=== PATIENT | female | born 1970 | race African-American/Black ===

== ENCOUNTER 2018-07-02 12:15 | Emergency (ER) | payer SELFPAY ==
--- NOTE | 2018-07-02 12:49 | EDM.PDOC ---
ED HPI GENERAL MEDICAL PROBLEM - General Chief Complaint: Lower Extremity Injury/Pain Stated Complaint: PAIN IN LT LEG Time Seen by Provider: 07/02/18 12:49 Source of Information: Reports: Patient History Limitations: Reports: No Limitations - History of Present Illness INITIAL COMMENTS - FREE TEXT/NARRATIVE: HISTORY AND PHYSICAL: []48-year-old female presenting with left leg pain History of Present Illness: []Started in her calf now is resolved she is having pain in the back of her knee and back of her thigh Review of Systems: As per history of present illness and below otherwise all systems reviewed and negative. Past medical history: As per history of present illness and as reviewed below otherwise noncontributory. Surgical history: As per history of present illness and as reviewed below otherwise noncontributory. Social history: No reported history of drug or alcohol abuse. Family history: As per history of present illness and as reviewed below otherwise noncontributory. Physical exam: Alert female answering questions appropriately in full sentences without any shortness of breath. She is nontoxic in appearance. HEENT: Atraumatic, normocehpalic, pupils reactive, negative for conjunctival pallor or scleral icterus, mucous membranes moist, throat clear, neck supple, nontender, trachea midline. Lungs: Clear to auscultation, breath sounds equal bilaterally, chest non tender. Heart: S1S2, regular, negative for clicks, rubs, or JVD. Abdomen: Soft, nondistended, nontender. Negative for masses or hepatossplenmegaly. Negative for costovertebral tenderness. Pelvis: Stable nontender. Exquisite tenderness with palpation to the sciatic on the left. With palpation she did buckle her knee slightly. Genitourinary: Deferred. Rectal: Deferred Extremities: Atraumatic, negative for cords or calf pain. Pressure calf did not elicit pain. Palpation posterior knee difficult due to habitus. Neurovascular unremarkable. Neuro: Awake, alert, oriented. Cranial nerves II through XII unremarkable. Cerebellum unremarkable. Motor and sensory unremarkable throughout. Exam nonfocal. Discussed the case with the patient stating that her symptoms and ultrasounds indicate a left sciatica Diagnostics: []Left knee x-ray to rule out Felton's cyst Therapeutics: [] Impression: []Left sciatica Plan: []Discharged home Follow up with physical therapy See your primary care provider to reevaluate Diclofenac for pain Medrol dose pack Return to the emergency department as directed Definitive disposition and diagnosis as appropriate pending reevaluation and review of above. 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 ED EXAM, GENERAL - Physical Exam Exam: See Below (see dictation) Course - Vital Signs Last Recorded V/S: Last Vital Signs Temp 36.7 C 07/02/18 12:28 Pulse 85 07/02/18 12:28 Resp 18 07/02/18 12:28 BP 132/86 07/02/18 12:28 Pulse Ox 99 07/02/18 12:28 - Orders/Labs/Meds Orders: Active Orders 24 hr Category Date Time Status Extremity Non Vascular Lt [US] Stat Exams 07/02/18 13:31 Taken Knee 3V Lt [CR] Stat Exams 07/02/18 12:53 Taken Meds: Medications Discontinued Medications Generic Name Dose Route Start Last Admin Trade Name Freq PRN Reason Stop Dose Admin Ketorolac Tromethamine 60 mg 07/02/18 13:34 Toradol IM 07/02/18 13:35 ONETIME ONE Departure - Departure Time of Disposition: 14:47 Disposition: Home, Self-Care 01 Condition: Good Clinical Impression: Left sided sciatica - Discharge Information *PRESCRIPTION DRUG MONITORING PROGRAM REVIEWED*: Not Applicable *COPY OF PRESCRIPTION DRUG MONITORING REPORT IN PATIENT JAVIER: Not Applicable Prescriptions: Diclofenac Sodium [Voltaren] 75 mg PO BIDMEALS #20 tab.cr methylPREDNISolone [Medrol] 4 mg PO ASDIRECTED #1 dosepk Instructions: Sciatica [facility], Sciatica, Zapt-[facility]-Cuer Referrals: PCP,None [Primary Care Provider] - Forms: ED Department Discharge Additional Instructions: The following information is given to patients seen in the emergency department who are being discharged to home. This information is to outline your options for follow-up care. We provide all patients seen in our emergency department with a follow-up referral. The need for follow-up, as well as the timing and circumstances, are variable depending upon the specifics of your emergency department visit. If you don't have a primary care physician on staff, we will provide you with a referral. We always advise you to contact your personal physician following an emergency department visit to inform them of the circumstance of the visit and for follow-up with them and/or the need for any referrals to a consulting specialist. The emergency department will also refer you to a specialist when appropriate. This referral assures that you have the opportunity for followup care with a specialist. All of these measure are taken in an effort to provide you with optimal care, which includes your followup. Under all circumstances we always encourage you to contact your private physician who remains a resource for coordinating your care. When calling for followup care, please make the office aware that this follow-up is from your recent emergency room visit. If for any reason you are refused follow-up, please contact the [facility] emergency department at and asked to speak to the emergency department charge nurse. Discharged home Follow up with physical therapy See your primary care provider to reevaluate Diclofenac for pain Medrol dose pack Return to the emergency department as directed - My Orders Last 24 Hours: My Active Orders 07/02/18 12:53 Knee 3V Lt [CR] Stat 07/02/18 13:31 Extremity Non Vascular Lt [US] Stat - Assessment/Plan Last 24 Hours: My Active Orders 07/02/18 12:53 Knee 3V Lt [CR] Stat 07/02/18 13:31 Extremity Non Vascular Lt [US] Stat
[2018-07-02] MEDS ORDERED: Ketorolac 60 MG/2 ML SDV IM ONE (13:34)
[2018-07-02] MEDS ORDERED: Ketorolac 60 MG/2 ML SDV ONE (14:58)
--- NOTE | 2018-07-03 13:48 | CR ---
EXAM DATE: 07/02/18 PATIENT'S AGE: 48 Patient: DANNY SHAW Facility: [place], [place] Site . Site : 1970 Study: XRay Knee Left [id number]/2/2018 1:19:43 PM Ordering Physician: Doctor Christian Final Report: CLINICAL INDICATION: Left knee pain. No trauma. Assess for Felton`s cyst. Findings : There is mild narrowing of the medial knee joint compartment with mild marginal spurring. There is also mild patellofemoral change. There is no fracture, dislocation or joint effusion. IMPRESSION: Mild medial and patellofemoral compartment osteoarthritis. No apparent Felton`s cyst but this cannot be excluded based on plain radiography. Consider ultrasound. Dictated by Rodrigo Escudero MD @ Jul 02 2018 1:21PM (Electronic Signature) Report Signed by Proxy. JOSE
--- NOTE | 2018-07-03 13:57 | US ---
EXAM DATE: 07/02/18 PATIENT'S AGE: 48 Patient: DANNY SHAW Facility: [place], [place] Site . Site : 1970 Study: US Extremity Left knee MW [id number]/2/2018 2:22:29 PM Ordering Physician: Doctor Christian Final Report: INDICATION: Knee pain. FINDINGS: An ultrasound of the left popliteal fossa shows no abnormal fluid collections. No evidence of a Felton`s cyst. No DVT identified in the left popliteal vein. Dictated by Sudheer Mcmullen MD @ 07/02/2018 2:31:15 PM Dictated by: Sudheer Mcmullen MD @ 07/02/2018 14:31:27 (Electronic Signature) Report Signed by Proxy. JOSE
== END 2018-07-02 15:25 | disposition home or self-care (01) ==
LOC: MW.ED 12:15
DX: M54.32 Sciatica, left side (principal); Z88.2 Allergy status to sulfonamides
CPT/HCPCS: 73562; 76881; 96372; 99283; J1885

== ENCOUNTER 2019-01-22 10:19 | Emergency (ER) | payer MEDICAID, OTHER ==
[2019-01-22] MEDS ORDERED: Ketorolac 30 MG/ML SDV IM ONE (10:36)
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
--- NOTE | 2019-01-22 12:20 | CR ---
EXAMINATION: Lumbar spine HISTORY: Pain COMPARISON: None TECHNIQUE: AP and lateral views obtained of the lumbar spine. FINDINGS: The lumbar spinal alignment is normal. The vertebral body heights and disc spaces appear well-maintained. Mild marginal osteophyte formation. SI joints are symmetric. Cholecystectomy clips are noted. IMPRESSION: 1. Mild degenerative changes without acute findings.
== END 2019-01-22 12:39 | disposition home or self-care (01) ==
LOC: MW.ED 10:19
DX: M54.5 Low back pain (principal); Z88.2 Allergy status to sulfonamides
CPT/HCPCS: 72100; 81003; 96372; 99283; J1885; J2360

== ENCOUNTER 2019-01-24 12:46 | Emergency (ER) | payer MEDICAID ==
[2019-01-24] MEDS ORDERED: Ondansetron 4 MG Tab.DIS PO ONE (13:06)
[2019-01-24] MEDS ORDERED: Ketorolac 60 MG/2 ML SDV IM ONE (13:06)
--- NOTE | 2019-01-24 13:16 | EDM.PDOC ---
ED [facility] GENERAL MEDICAL PROBLEM - General Chief Complaint: Neck Problem Stated Complaint: NECK PAIN Time Seen by Provider: 01/24/19 13:02 Source of Information: Reports: Patient History Limitations: Reports: No Limitations - History of Present Illness INITIAL COMMENTS - FREE TEXT/NARRATIVE: HISTORY AND PHYSICAL: History of present illness: Patient is a 48-year-old female who presents to the ED today with concerns of neck pain. Patient states the pain started this morning and she rates her pain a 10 out of 10. Patient states the neck pain is causing her nausea today but she has not vomited. Patient describes the pain as "spasm". She denies any recent injury to the area. Patient was seen in the ED on 01/22/2019 for low back pain which she did receive imaging at that time which showed no acute osseous abnormality of the lumbar spine. Patient was sent home with Flexeril and diclofenac and states that this "doesn't touch her pain ". Therefor she did not fill these prescriptions. Patient denies any fever, chills, change in vision, syncope or near syncope. Denies any chest pain, shortness of breath or cough. Denies any abdominal pain, vomiting, diarrhea, constipation or dysuria. Has not noted any blood in urine or stool. Patient has been eating and drinking appropriately. Review of systems: As per history of present illness and below otherwise all systems reviewed and negative. Past medical history: As per history of present illness and as reviewed below otherwise noncontributory. Surgical history: As per history of present illness and as reviewed below otherwise noncontributory. Social history: See social history for further information Family history: As per history of present illness and as reviewed below otherwise noncontributory. Physical exam: General: Patient is alert, oriented, and in no acute distress. She is sitting comfortably on exam table. HEENT: Atraumatic, normocephalic, pupils equal and reactive bilaterally, negative for conjunctival pallor or scleral icterus, mucous membranes moist, TMs normal bilaterally, throat clear, neck supple, nontender, trachea midline. No drooling or trismus noted. No meningeal signs. No hot potato voice noted. Lungs: Clear to auscultation, breath sounds equal bilaterally, chest nontender. Heart: S1S2, regular rate and rhythm without overt murmur Abdomen: Soft, nondistended, nontender. Negative for masses or hepatosplenomegaly. Negative for costovertebral tenderness. Pelvis: Stable nontender. Genitourinary: Deferred. Rectal: Deferred. Skin: Intact, warm, dry. No lesions or rashes noted. Extremities/Musculoskeletal: Patient has mild pain to palpation of the trapezius muscle. Negative pain to palpation of the spinous processes of the cervical spine. Patient has full range of motion of the cervical spine. Otherwise, atraumatic, negative for cords or calf pain. Neurovascular unremarkable. Neuro: Awake, alert, oriented. Cranial nerves II through XII unremarkable. Cerebellum unremarkable. Motor and sensory unremarkable throughout. Exam nonfocal. Notes: We'll do imaging today. Cervical x-ray shows no acute osseous abnormalities. These findings were discussed and shared with patient. Supportive care measures were reviewed and discussed. Voices understanding and is agreeable to plan of care. Denies any further questions or concerns at this time. Diagnostics: Cervical spine XR Therapeutics: Zofran, Toradol Prescription: Zofran Impression: Muscle spasm, unspecified Plan: 1. Take ibuprofen and Tylenol as directed for pain and discomfort. You can apply heat or ice to the area 15 minutes on 20 minutes off to alleviate pain and discomfort. 2. Follow-up with your primary care provider as discussed. 3. Return to the ED as needed as discussed. Definitive disposition and diagnosis as appropriate pending reevaluation and review of above. Neck Pain Score (Numeric/FACES): 10 - Related Data Allergies Allergy/AdvReac Type Severity Reaction Status Date / Time Sulfa (Sulfonamide Allergy Hives Verified 01/24/19 13:03 Antibiotics) Home Meds: Home Meds . 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 ED EXAM, UPPER BACK/NECK PAIN - Physical Exam Exam: See Below (see dictation) Course - Vital Signs Last Recorded V/S: Last Vital Signs Temp 97.0 F 01/24/19 13:01 Pulse 72 01/24/19 14:03 Resp 18 01/24/19 14:03 BP 125/81 01/24/19 14:03 Pulse Ox 97 01/24/19 14:03 - Orders/Labs/Meds Meds: Medications Discontinued Medications Generic Name Dose Route Start Last Admin Trade Name Curly PRN Reason Stop Dose Admin Ketorolac Tromethamine 60 mg 01/24/19 13:06 01/24/19 13:39 Toradol IM 01/24/19 13:07 60 mg ONETIME ONE Administration Ondansetron HCl 4 mg 01/24/19 13:06 01/24/19 13:38 Zofran Odt PO 01/24/19 13:07 4 mg ONETIME ONE Administration Orphenadrine Citrate 60 mg 01/24/19 13:08 01/24/19 13:39 Norflex IM 01/24/19 13:09 60 mg NOW STA Administration Departure - Departure Time of Disposition: 13:52 Disposition: Home, Self-Care 01 Clinical Impression: Muscle spasm - Discharge Information Instructions: Muscle Cramps and Spasms, [id number] Referrals: PCP,Unknown [Primary Care Provider] - Forms: ED Department Discharge Additional Instructions: The following information is given to patients seen in the emergency department who are being discharged to home. This information is to outline your options for follow-up care. We provide all patients seen in our emergency department with a follow-up referral. The need for follow-up, as well as the timing and circumstances, are variable depending upon the specifics of your emergency department visit. If you don't have a primary care physician on staff, we will provide you with a referral. We always advise you to contact your personal physician following an emergency department visit to inform them of the circumstance of the visit and for follow-up with them and/or the need for any referrals to a consulting specialist. The emergency department will also refer you to a specialist when appropriate. This referral assures that you have the opportunity for follow-up care with a specialist. All of these measure are taken in an effort to provide you with optimal care, which includes your follow-up. Under all circumstances we always encourage you to contact your private physician who remains a resource for coordinating your care. When calling for follow-up care, please make the office aware that this follow-up is from your recent emergency room visit. If for any reason you are refused follow-up, please contact the [facility] Emergency Department at and asked to speak to the emergency department charge nurse. [facility] [address] [place] [id number] [facility] [address] [place] [id number] 1. Take ibuprofen and Tylenol as directed for pain and discomfort. You can apply heat or ice to the area 15 minutes on 20 minutes off to alleviate pain and discomfort. 2. Follow-up with your primary care provider as discussed. 3. Return to the ED as needed as discussed.
--- NOTE | 2019-01-24 13:51 | CR ---
EXAMINATION: Cervical spine HISTORY: Pain COMPARISON: 10/11/2018 TECHNIQUE: AP and lateral views obtained FINDINGS: The cervical spinal alignment is normal. Vertebral body heights appear maintained. There is no abnormal bone marrow signal. No fracture or acute osseous abnormality. Osteophyte noted at C5. Prevertebral soft tissues are normal. IMPRESSION: No acute osseous abnormality identified.
== END 2019-01-24 14:04 | disposition home or self-care (01) ==
LOC: MW.ED 12:46
DX: M62.838 Other muscle spasm (principal); Z88.2 Allergy status to sulfonamides
CPT/HCPCS: 72040; 96372; 99283; A9270; J1885; J2360

== ENCOUNTER 2019-02-27 08:19 | Emergency (ER) | payer MEDICAID ==
[2019-02-27] MEDS ORDERED: Ketorolac 30 MG/ML SDV IVPUSH ONE (08:41)
[2019-02-27] MEDS ORDERED: Ondansetron 4 MG/2 ML SDV IVPUSH ONE (08:41)
[2019-02-27] MEDS ORDERED: Sodium Chloride 0.9% 1,000 ML IV ONE (08:41)
[2019-02-27 10:00] LABS: CHLORIDE,CL 103 mmol/L (98-107); SODIUM,NA 139 mmol/L (136-145)
--- NOTE | 2019-02-27 10:11 | EDM.PDOC ---
ED [facility]PI GENERAL MEDICAL PROBLEM - General Chief Complaint: Abdominal Pain Stated Complaint: STOMACH PAIN Time Seen by Provider: 02/27/19 10:02 Source of Information: Reports: Patient - History of Present Illness INITIAL COMMENTS - FREE TEXT/NARRATIVE: HISTORY AND PHYSICAL: History of present illne[pt presents w abd pain 2 out of 10 nonradiating epigastric area, pain began after taking Wellbutrin and vomiting once on an empty stomach is patient has been dieting no distress alert no fever no current vomiting no chills sweats chest pain shortness breath headache dizziness palpitation no bowel or urine symptoms Review of systems: As per history of present illness and below otherwise all systems reviewed and negative. Past medical history: As per history of present illness and as reviewed below otherwise noncontributory. Surgical history: As per history of present illness and as reviewed below otherwise noncontributory. Social history: No reported history of drug or alcohol abuse. Family history: As per history of present illness and as reviewed below otherwise noncontributory. Physical exam: HEENT: Atraumatic, normocephalic, pupils reactive, negative for conjunctival pallor or scleral icterus, mucous membranes moist, throat clear, neck supple, nontender, trachea midline. Lungs: Clear to auscultation, breath sounds equal bilaterally, chest nontender. Heart: S1S2, regular, negative for clicks, rubs, or JVD. Abdomen: Soft, nondistended, nontender. Negative for masses or hepatosplenomegaly. Negative for costovertebral tenderness. Pelvis: Stable nontender. Genitourinary: Deferred. Rectal: Deferred. Extremities: Atraumatic, negative for cords or calf pain. Neurovascular unremarkable. Neuro: Awake, alert, oriented. Cranial nerves II through XII unremarkable. Cerebellum unremarkable. Motor and sensory unremarkable throughout. Exam nonfocal. Diagnostics: [ CBC CMP UA lip] Therapeutics: [normal saline toradol zofran mpression: [ abdominal pain ] Definitive disposition and diagnosis as appropriate pending reevaluation and review of above. 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: Musculoskeletal History: Reports: Neck Pain, Chronic Neurological History: Reports: None Psychiatric History: Reports: None Endocrine/Metabolic History: Reports: None Hematologic History: Reports: None Immunologic History: Reports: None Oncologic (Cancer) History: Reports: None Dermatologic History: Reports: None - Infectious Disease History Infectious Disease History: Reports: Chicken Pox - Past Surgical History Head Surgeries/Procedures: Reports: None HEENT Surgical History: Reports: None Cardiovascular Surgical History: Reports: None Respiratory Surgical History: Reports: None GI Surgical History: Reports: Cholecystectomy Female Surgical History: Reports: Breast Biopsy Endocrine Surgical History: Reports: None Neurological Surgical History: Reports: None Musculoskeletal Surgical History: Reports: None Oncologic Surgical History: Reports: None Dermatological Surgical History: Reports: None Social & Family History - Family History Family Medical History: Noncontributory - Tobacco Use Smoking Status *Q: Never Smoker Second Hand Smoke Exposure: No - Caffeine Use Caffeine Use: Reports: Coffee - Recreational Drug Use Recreational Drug Use: No ED ROS GENERAL - Review of Systems Review Of Systems: See Below ED EXAM, GENERAL - Physical Exam Exam: See Below Course - Vital Signs Last Recorded V/S: Last Vital Signs Temp 97.3 F 02/27/19 08:48 Pulse 75 02/27/19 09:58 Resp 14 02/27/19 09:58 BP 114/72 02/27/19 09:58 Pulse Ox 97 02/27/19 09:58 - Orders/Labs/Meds Orders: Active Orders 24 hr Category Date Time Status Abdomen 2V AP Flat Upright [CR] Stat Exams 02/27/19 09:25 Ordered COMPREHENSIVE METABOLIC PN,CMP [CHEM] Stat Lab 02/27/19 09:15 Received LIPASE [CHEM] Stat Lab 02/27/19 09:15 Received TROPONIN I [CHEM] Stat Lab 02/27/19 09:15 Received Labs: Laboratory Tests 02/27/19 02/27/19 Range/Units 09:15 09:15 WBC 5.66 (4.0-11.0) K/uL RBC 5.21 (4.30-5.90) M/uL Hgb 13.8 (12.0-16.0) g/dL Hct 42.0 (36.0-46.0) % MCV 80.6 (80.0-98.0) fL MCH 26.5 L (27.0-32.0) pg MCHC 32.9 (31.0-37.0) g/dL RDW Std Deviation 47.4 (28.0-62.0) fl RDW Coeff [place] 16 H (11.0-15.0) % Plt Count 276 (150-400) K/uL MPV 9.90 (7.40-12.00) fL Neut % (Auto) 46.5 L (48.0-80.0) % Lymph % (Auto) 37.1 (16.0-40.0) % [place] % (Auto) 8.5 (0.0-15.0) % Eos % (Auto) 7.4 H (0.0-7.0) % Baso % (Auto) 0.5 (0.0-1.5) % Neut # (Auto) 2.6 (1.4-5.7) K/uL Lymph # (Auto) 2.1 (0.6-2.4) K/uL [place] # (Auto) 0.5 (0.0-0.8) K/uL Eos # (Auto) 0.4 (0.0-0.7) K/uL Baso # (Auto) 0.0 (0.0-0.1) K/uL Nucleated RBC % 0.0 /100WBC Nucleated RBCs # 0 K/uL Urine Color YELLOW Urine Appearance SLT CLOUDY Urine pH 6.0 (5.0-8.0) Ur Specific [place] 1.010 (1.001-1.035) Urine Protein NEGATIVE (NEGATIVE) mg/dL Urine Glucose (UA) NEGATIVE (NEGATIVE) mg/dL Urine Ketones NEGATIVE (NEGATIVE) mg/dL Urine Occult Blood TRACE-INTACT H (NEGATIVE) Urine Nitrite NEGATIVE (NEGATIVE) Urine Bilirubin NEGATIVE (NEGATIVE) Urine Urobilinogen 0.2 (<2.0) EU/dL Ur Leukocyte Esterase NEGATIVE (NEGATIVE) Urine RBC 0-1 (0-2/HPF) Urine WBC 0-1 (0-5/HPF) Ur Epithelial Cells RARE (NONE-FEW) Urine Bacteria FEW (NEGATIVE) Meds: Medications Discontinued Medications Generic Name Dose Route Start Last Admin Trade Name Curly PRN Reason Stop Dose Admin Sodium Chloride 1,000 mls @ 999 mls/hr 02/27/19 08:41 02/27/19 09:22 Normal Saline IV 02/27/19 09:41 999 mls/hr STAT ONE Administration Ketorolac Tromethamine 30 mg 02/27/19 08:41 02/27/19 09:24 Toradol IVPUSH 02/27/19 08:42 30 mg ONETIME ONE Administration Ondansetron HCl 8 mg 02/27/19 08:41 02/27/19 09:24 Zofran IVPUSH 02/27/19 08:42 8 mg ONETIME ONE Administration Departure - Departure Time of Disposition: 10:27 Disposition: Home, Self-Care 01 Condition: Good Clinical Impression: Abdominal pain - Discharge Information Referrals: PCP,Unknown [Primary Care Provider] - Forms: ED Department Discharge Additional Instructions: The following information is given to patients seen in the emergency department who are being discharged to home. This information is to outline your options for follow-up care. We provide all patients seen in our emergency department with a follow-up referral. The need for follow-up, as well as the timing and circumstances, are variable depending upon the specifics of your emergency department visit. If you don't have a primary care physician on staff, we will provide you with a referral. We always advise you to contact your personal physician following an emergency department visit to inform them of the circumstance of the visit and for follow-up with them and/or the need for any referrals to a consulting specialist. The emergency department will also refer you to a specialist when appropriate. This referral assures that you have the opportunity for follow-up care with a specialist. All of these measure are taken in an effort to provide you with optimal care, which includes your follow-up. Under all circumstances we always encourage you to contact your private physician who remains a resource for coordinating your care. When calling for follow-up care, please make the office aware that this follow-up is from your recent emergency room visit. If for any reason you are refused follow-up, please contact the [facility] emergency department at and asked to speak to the emergency department charge nurse. - My Orders Last 24 Hours: My Active Orders 02/27/19 09:15 COMPREHENSIVE METABOLIC PN,CMP [CHEM] Stat LIPASE [CHEM] Stat TROPONIN I [CHEM] Stat 02/27/19 09:25 Abdomen 2V AP Flat Upright [CR] Stat - Assessment/Plan Last 24 Hours: My Active Orders 02/27/19 09:15 COMPREHENSIVE METABOLIC PN,CMP [CHEM] Stat LIPASE [CHEM] Stat TROPONIN I [CHEM] Stat 02/27/19 09:25 Abdomen 2V AP Flat Upright [CR] Stat
--- NOTE | 2019-02-27 10:30 | CR ---
EXAMINATION: Abdomen HISTORY: Pain COMPARISON: None TECHNIQUE: AP and upright views FINDINGS: There is no free air under the diaphragm. Cholecystectomy clips are noted. Nonobstructive bowel gas pattern. IUD projects over the pelvis. Osteitis pubis. IMPRESSION: 1. No acute findings within the abdomen or pelvis.
== END 2019-02-27 10:40 | disposition home or self-care (01) ==
LOC: MW.ED 08:19
DX: R10.9 Unspecified abdominal pain (principal); Z79.899 Other long term (current) drug therapy; Z88.2 Allergy status to sulfonamides
CPT/HCPCS: 36415; 74019; 80053; 81001; 83690; 84484; 85025; 96361; 96374; 96375; 99284; J1885; J2405; J7040; 99283

== ENCOUNTER 2021-06-15 15:58 | Emergency (ER) | payer SELFPAY | END 2021-06-15 16:42 | disposition left against medical advice (07) | LOC: MW.ED 15:58 | DX: Z53.21 Procedure and treatment not carried out due to patient leaving prior to being seen by health care provider (principal) ==

== ENCOUNTER 2025-03-25 01:17 | Emergency (ER) | payer MEDICAID | END 2025-03-25 04:47 | disposition home or self-care (01) | LOC: MW.ED 01:17 | DX: F48.9 Nonpsychotic mental disorder, unspecified (principal); Z90.49 Acquired absence of other specified parts of digestive tract; Z88.2 Allergy status to sulfonamides; Z79.899 Other long term (current) drug therapy | CPT/HCPCS: 99285 ==

== ENCOUNTER 2025-03-28 18:18 | Emergency (ER) | payer MEDICAID | END 2025-03-28 18:37 | disposition left against medical advice (07) | LOC: MW.ED 18:18 | DX: Z53.21 Procedure and treatment not carried out due to patient leaving prior to being seen by health care provider (principal) ==

== ENCOUNTER 2025-03-29 07:50 | Emergency (ER) | payer MEDICAID ==
[2025-03-29 09:10] LABS: APPEARANCE,URINE SLT CLOUDY; BILIRUBIN,URINE NEGATIVE (NEGATIVE); COLOR,URINE YELLOW; GLUCOSE,URINE NEGATIVE (NEGATIVE); KETONES,URINE NEGATIVE (NEGATIVE); LEUKOCYTE ESTERASE,URINE NEGATIVE (NEGATIVE); NITRITE,URINE NEGATIVE (NEGATIVE); OCCULT BLOOD,URINE TRACE-INTACT (NEGATIVE); PROTEIN,URINE NEGATIVE (NEGATIVE); UROBILINOGEN,URINE 0.2 EU/dL (<2.0)
[2025-03-29 09:18] LABS: BACTERIA,URINE FEW (NEGATIVE); EPITHELIAL CELLS,URINE FEW (NONE-FEW); RBC,URINE 0-2 (0-2/HPF); WBC,URINE 0-4 (0-5/HPF)
[2025-03-29 09:20] LABS: AMPHETAMINES SCREEN, URINE NEGATIVE (CUTOFF=500); BARBITURATE SCREEN,URINE NEGATIVE (CUTOFF=200); BENZODIAZEPINES SCREEN,URINE NEGATIVE (CUTOFF=150); BUPRENORPHINE SCREEN,URINE NEGATIVE (CUTOFF=10); METHADONE SCREEN, URINE NEGATIVE (CUTOFF=200); METHAMPHETAMINES SCREEN, URINE NEGATIVE (CUTOFF=500); OXYCODONE SCREEN,URINE NEGATIVE (CUT0FF=100); PCP SCREEN,URINE NEGATIVE (CUTOFF=25); THC SCREEN,URINE 20 NG/ML NEGATIVE (CUTOFF=50)
[2025-03-29 09:22] LABS: BASOPHILS ABSOLUTE AUTO 0.06 K/uL (0.00-0.20); BASOPHILS PERCENT AUTO 0.8 % (0.0-1.0); EOSINOPHILS ABSOLUTE AUTO 0.45 K/uL (0.00-0.45); EOSINOPHILS PERCENT AUTO 5.9 % (0.0-6.0); HEMATOCRIT 45.3 % (37.0-47.0); IMMATURE GRAN ABSOLUTE AUTO 0.03 K/uL (0.00-0.05); IMMATURE GRAN PERCENT AUTO 0.4 % (0.0-0.4); LYMPHOCYTES PERCENT AUTO 35.7 % (24.0-44.0); MEAN CORPUSCULAR HGB CONC 33.1 g/dL (32.0-36.0); MEAN CORPUSCULAR VOLUME 78.6 fL (83.0-99.0); MEAN PLATELET VOLUME 9.5 fL (9.4-12.3); MONOCYTES ABSOLUTE AUTO 0.62 K/uL (0.00-0.80); MONOCYTES PERCENT AUTO 8.2 % (0.0-8.0); NEUTROPHILS ABSOLUTE AUTO 3.71 K/uL (1.80-7.70); PLATELET COUNT,PLT 289 K/uL (150-400); RED BLOOD CELL COUNT 5.76 M/uL (4.10-5.30); WHITE BLOOD CELL COUNT,WBC 7.57 K/uL (3.9-11.3)
[2025-03-29 09:53] LABS: A/G RATIO 0.9 (0.9-1.6); ACETAMINOPHEN <2.0 ug/mL; ALANINE AMINOTRANSFERASE,ALT 19 IU/L (14-63); ALBUMIN 3.7 g/dL (3.4-5.0); ALKALINE PHOSPHATASE 115 U/L (46-116); ASPARTATE AMNIOTRANSFERASE,AST 19 IU/L (15-37); BILIRUBIN TOTAL 0.6 mg/dL (0.2-1.0); BLOOD UREA NITROGEN,BUN 17 mg/dL (7.0-18.0); CALCIUM 9.6 mg/dL (8.5-10.1); CARBON DIOXIDE,CO2 28.1 mmol/L (21.0-32.0); CHLORIDE,CL 105 mmol/L (98-107); EST CRCL DRUG DOSING (CG) 60.91 mL/min; ESTIMATED GFR 67 mL/min (>60); GLUCOSE RANDOM 118 mg/dL (74-106); POTASSIUM,K 3.7 mmol/L (3.5-5.1); SALICYLATE 1.5 mg/dL (0.0-20.0); SODIUM,NA 142 mmol/L (136-145)
[2025-03-29] MEDS: OLANZapine 5 MG Tab.DIS PO ONE (11:52)
[2025-03-29] MEDS ORDERED: OLANZapine 10 MG in Water For Injection, Sterile 2.1 ML IM ONE (11:52)
[2025-03-29] MEDS: OLANZapine 10 MG Vial IM ONE (13:35)
[2025-03-29] MEDS ORDERED: risperiDONE 1 MG Tab PO ONE (21:00)
== END 2025-03-29 13:52 ==
LOC: MW.ED 07:50
DX: F20.9 Schizophrenia, unspecified (principal); Z90.49 Acquired absence of other specified parts of digestive tract; Z88.2 Allergy status to sulfonamides
CPT/HCPCS: 36415; 80053; 80143; 80179; 80305; 81001; 84702; 84703; 85025; 96372; 99285; J2359